=== PATIENT | male | born 1965 | race Caucasian/White ===

== ENCOUNTER → 2021-07-12 | Day surgery (SDC) | payer OTHER | LOC: MSO 07:27 | DX: D12.3 Benign neoplasm of transverse colon (principal); D12.8 Benign neoplasm of rectum; K57.30 Diverticulosis of large intestine without perforation or abscess without bleeding; K64.0 First degree hemorrhoids; K64.4 Residual hemorrhoidal skin tags; I10 Essential (primary) hypertension; F17.210 Nicotine dependence, cigarettes, uncomplicated; E66.9 Obesity, unspecified; Z79.899 Other long term (current) drug therapy | CPT/HCPCS: 00811; J0360; J2704; J3010; J7120 ==